=== PATIENT | female | born 1945 | race Hispanic/Latino ===

== ENCOUNTER 2021-02-21 05:54 | Observation (INO) | payer MEDICARE ==
[2021-02-17 13:40] LABS: BASOPHILS # (AUTO) 0.1 (0.0-0.1); BASOPHILS % 0.9 % (0.0-1.0); EOSINOPHILS # (AUTO) 0.3 (0.0-0.4); EOSINOPHILS % 3.8 % (0.0-6.0); HEMATOCRIT 36.2 % (34.2-44.1); HEMOGLOBIN 11.7 g/dL (12.0-16.0); LYMPHOCYTES # (AUTO) 2.6 (1.0-3.2); LYMPHOCYTES % 33.1 % (18.0-39.1); MEAN CORPUSCULAR HEMOGLOBIN 31.5 pg (28-32); MEAN CORPUSCULAR HGB CONC 32.3 g/dL (31-35); MEAN CORPUSCULAR VOLUME 97.6 fL (81-99); MONOCYTES # (AUTO) 0.6 (0.2-0.8); MONOCYTES % 7.9 % (4.4-11.3); NEUTROPHILS # (AUTO) 4.3 (2.1-6.9); PLATELET COUNT 339 x10e3/uL (140-360); RED BLOOD COUNT 3.71 x10e6/uL (3.6-5.1); RED CELL DISTRIBUTION WIDTH 12.4 % (11.7-14.4)
[2021-02-17 14:01] LABS: ALBUMIN/GLOBULIN RATIO 1.2 (0.8-2.0); ANION GAP 13.1 mmol/L (8-16); CALCIUM 9.3 mg/dL (8.4-10.2); CREATININE, SERUM 0.82 mg/dL (0.57-1.11); POTASSIUM 4.1 mmol/L (3.5-5.1)
[~2021-02-21] VITALS: Ht 149.9 cm; Wt 46.7 kg
[~2021-02-21 05:54] MED LIST: METFORMIN HCL500 MG PO; SIMVASTATIN20 MG PO; ZESTRIL10 MG PO
[2021-02-21] MEDS ORDERED: SODIUM CHLORIDE 0.9% 50ML 100 ML ONE (06:40)
[2021-02-21] MEDS ORDERED: LIDOCAINE 1% W/EPINEPHRINE 20 ML VIAL ONE (07:18)
[2021-02-21] MEDS ORDERED: ESTROGENS CONJUGATED VAGINAL CR 45 GM TUBE PV ONE (07:18)
[2021-02-21] MEDS ORDERED: BUPIVACAINE HCL 0.5% INJ 30 ML VIAL INJ ONE (07:19)
[2021-02-21] MEDS ORDERED: DOCUSATE SODIUM 100 MG CAP PO PRN (08:00)
[2021-02-21] MEDS ORDERED: PROMETHAZINE HCL (IM) 25 MG/ML VIAL IM PRN (08:00)
[2021-02-21] MEDS: LACTATED RINGER'S 1,000 ML IV SCH ×3 (08:00→18:16)
[2021-02-21] MEDS ORDERED: FENTANYL CITRATE/PF 100MCG/2 ML INJ ONE (09:41)
[2021-02-21] MEDS ORDERED: MORPHINE SULFATE INJ 10 MG/ML ONE (10:23)
[2021-02-21] MEDS ORDERED: HYDROCODONE/APAP 5MG-325MG TAB ONE (12:07)
[2021-02-21 12:54] VITALS: BP 122/45
[2021-02-21] MEDS ORDERED: ONDANSETRON HCL INJ 2MG/ML 2ML 2 MG/ML VIAL ONE (13:43)
[2021-02-21] MEDS ORDERED: SEVOFLURANE INHAL SOLN 250 ML PEN BTL ONE (13:43)
[2021-02-21] MEDS ORDERED: POVIDONE IODINE 0.05% 0.05 % ML PO ONE (13:43)
[2021-02-21] MEDS ORDERED: PROPOFOL IV EMULSION 10 MG/ML 20 ML VIAL ONE (13:43)
[2021-02-21] MEDS ORDERED: LIDOCAINE HCL 2% LOCAL INJ 5 ML SDV VIAL INJ ONE (13:43)
[2021-02-21] MEDS ORDERED: DEXAMETHASONE SOD PHOS INJ 4 MG/ML VIAL ONE (13:43)
[2021-02-21] MEDS: MEPERIDINE HCL INJ 25 MG/ML VIAL IV PRN ×2 (14:01→21:39)
[2021-02-21 14:53] VITALS: BP 122/45
[2021-02-21 15:41] VITALS: BP 113/55
[2021-02-21] MEDS: HYDROCODONE/APAP 5MG-325MG TAB PO PRN ×2 (16:30→20:35)
[2021-02-21 20:00] VITALS: BP 116/50
[2021-02-21 20:15] VITALS: BP 116/50
[2021-02-21 21:00] VITALS: BP 116/50
[2021-02-22] VITALS (7 sets, daily range): BP systolic 93–116; BP diastolic 16–53
[2021-02-22] MEDS: LACTATED RINGER'S 1,000 ML IV SCH ×2 (01:44→09:15)
[2021-02-22 05:03] LABS: BASOPHILS % 0.3 % (0.0-1.0); EOSINOPHILS # (AUTO) 0.1 (0.0-0.4); EOSINOPHILS % 0.6 % (0.0-6.0); HEMATOCRIT 31.9 % (34.2-44.1); HEMOGLOBIN 10.3 g/dL (12.0-16.0); LYMPHOCYTES # (AUTO) 1.7 (1.0-3.2); LYMPHOCYTES % 14.5 % (18.0-39.1); MEAN CORPUSCULAR HGB CONC 32.3 g/dL (31-35); MEAN CORPUSCULAR VOLUME 96.1 fL (81-99); MONOCYTES # (AUTO) 1.1 (0.2-0.8); MONOCYTES % 9.6 % (4.4-11.3); NEUTROPHILS # (AUTO) 8.8 (2.1-6.9); NEUTROPHILS % 74.7 % (38.7-80.0); PLATELET COUNT 318 x10e3/uL (140-360); RED BLOOD COUNT 3.32 x10e6/uL (3.6-5.1)
[2021-02-22] MEDS: MEPERIDINE HCL INJ 25 MG/ML VIAL IV PRN (08:50)
[2021-02-22] MEDS ORDERED: KETOROLAC TROMETHAMINE 30 MG/ML VIAL IV ONE (10:45)
[2021-02-22] MEDS ORDERED: ACETAMINOPHEN 1000 MG/100 ML 100 ML IV ONE (11:00)
[2021-02-22] MEDS: HYDROCODONE/APAP 5MG-325MG TAB PO PRN (16:10)
== END 2021-02-22 22:39 | disposition home or self-care (01) ==
LOC: OR 05:54 → PACU V 08:01 → MED/SURG3 12:36
PROVIDERS: ADMIT Obstetrics & Gynecology; ATTEND Obstetrics & Gynecology
DX: N81.9 Female genital prolapse, unspecified (principal); N18.9 Chronic kidney disease, unspecified; Z20.822 Contact with and (suspected) exposure to COVID-19; I10 Essential (primary) hypertension; N95.2 Postmenopausal atrophic vaginitis; E11.9 Type 2 diabetes mellitus without complications; E78.00 Pure hypercholesterolemia, unspecified; Z01.818 Encounter for other preprocedural examination
CPT/HCPCS: 36415 ×3; 57265; 57282; 71046; 80053; 82948 ×2; 85025 ×2; 93005; 99251; C1758; G0378 ×2; J0131; J0690; J1100; J2001; J2175 ×2; J2270; J2405; J2704; J3010; J7121 ×2; U0002

== ENCOUNTER 2021-02-23 12:11 | Emergency (ER) | payer MEDICARE ==
[~2021-02-23] VITALS: Ht 149.9 cm; Wt 46.7 kg
[2021-02-23] MEDS ORDERED: ONDANSETRON HCL 4 MG ORAL DISINTEGRATING TAB PO ONE (12:30)
[2021-02-23] MEDS ORDERED: HYDROCODONE/APAP 5MG-325MG TAB PO ONE (12:30)
[2021-02-23 12:42] LABS: HEMATOCRIT 33.7 % (34.2-44.1); HEMOGLOBIN 11.1 g/dL (12.0-16.0)
[2021-02-23 14:24] VITALS: BP 134/60
== END 2021-02-23 14:37 | disposition home or self-care (01) ==
LOC: ER 12:29
DX: G89.18 Other acute postprocedural pain (principal); R10.2 Pelvic and perineal pain; R11.0 Nausea; K59.00 Constipation, unspecified; Z96.0 Presence of urogenital implants; I10 Essential (primary) hypertension; E11.9 Type 2 diabetes mellitus without complications; Z79.84 Long term (current) use of oral hypoglycemic drugs; E78.5 Hyperlipidemia, unspecified; K21.9 Gastro-esophageal reflux disease without esophagitis; Z79.899 Other long term (current) drug therapy
CPT/HCPCS: 36415; 85014; 85018; 99283; Q0162